=== PATIENT | male | born 1965 | race African-American/Black ===

== ENCOUNTER 2016-12-12 15:33 | Emergency (ER) | payer BC ==
[~2016-12-12] VITALS: Ht 188 cm; Wt 238.1 kg
--- NOTE | ~2016-12-12 | CR169 ---
[facility] A Service of [facility] RADIOLOGY TEXT RESULTS PATIENT: ROCK MAYER LOCATION: CFTX : 61 UNIT #: [id number] AGE: [address]: Kriss Thompson APRN SEX: M ORDER DR: [id number] [facility] [address] [place], [place] [address] [id number] MR#: [id number] Acc #: [id number] NAME: ROCK MAYER : 1965 SEX: M STUDY DATE/TIME: 12/12/2016 16:52 UNIT: [facility] ROOM: STUDY DESCRIPTION: CR Knee 2 Views Lt Attending Physician: Kriss Thompson A.P.R.N. Ordering Physician: Ed Nacho Anton M.D. Primary Care Physician: Gracy Bear M.D. MEDICAL IMAGING REPORT This report is preliminary unless electronic signature is present EXAM Left knee, 12/12. HISTORY Knee pain with weightbearing for 3 days. Knee gave out while walking. FINDINGS AP and lateral views of the left knee were obtained. Patient is status post arthroplasty. Hardware demonstrates normal alignment. No fracture is seen. A joint effusion is present. IMPRESSION Joint effusion. Knee arthroplasty hardware is intact. No fractures. Dictated by... Jerry Duvall Jr., M.D. THIS IS AN ELECTRONICALLY VERIFIED REPORT Jerry Duvall Jr., M.D. at 12/12/2016 10:34 PM BLANCA/ant TD: 12/12/2016 20:06 JOB #: [id number] MEDICAL IMAGING REPORT Page 1 of 1 COPY
[~2016-12-12 15:33] MED LIST: ACTOS PO; ALDACTONE PO; ASPIRIN81 M1 PO; COUMADIN PO; DARVOCET-N 1001 TAB; DICLOFENAC PO; GLUCOTROL XL PO; HYDROCHLOROTHIA25 MG PO; HYDROCODON-ACE1 EACH PO; HYDROCODONE-APA1 T30 PO; LISINOPRIL PO; LOVENOX40 MG/0.4 INJ; NORCO 7.5/325 T1 TAB PO; SIMVASTATIN20 MG PO; VICODIN PO; WALGREENS PHARMACY
== END 2016-12-12 17:45 | disposition home or self-care (01) ==
LOC: CED 15:33 → CFTX 15:33
DX: S83.92XA Sprain of unspecified site of left knee, initial encounter (principal); E11.9 Type 2 diabetes mellitus without complications; I10 Essential (primary) hypertension; X50.9XXA Other and unspecified overexertion or strenuous movements or postures, initial encounter; Y92.69 Other specified industrial and construction area as the place of occurrence of the external cause; Y99.0 Civilian activity done for income or pay
CPT/HCPCS: 73560; 99283